=== PATIENT | male | born 1955 | race Caucasian/White ===

== ENCOUNTER 2024-12-21 12:36 | Outpatient (CLI) | payer MEDICARE | END 2024-12-21 23:59 | disposition home or self-care (01) | LOC: MRI 12:36 | PROVIDERS: ATTEND Student in an Organized Health Care Education/Training Program | DX: S76.102A Unspecified injury of left quadriceps muscle, fascia and tendon, initial encounter (principal); S89.92XA Unspecified injury of left lower leg, initial encounter; N43.3 Hydrocele, unspecified; T14.8XXA Other injury of unspecified body region, initial encounter; X58.XXXA Exposure to other specified factors, initial encounter; Y93.89 Activity, other specified; Y92.89 Other specified places as the place of occurrence of the external cause; Y99.8 Other external cause status | CPT/HCPCS: 73718; 73721 ==